=== PATIENT | male | born 1995 | race Caucasian/White ===

== ENCOUNTER 2019-08-07 13:48 | Emergency (ER) | payer BC ==
[2019-08-07] MEDS ORDERED: Lidocaine 1% 10 ML MDV INJECT ONE (14:10)
--- NOTE | 2019-08-07 14:17 | EDM.PDOC ---
ED HPI GENERAL MEDICAL PROBLEM - General Chief Complaint: Laceration Stated Complaint: L KNEE LAC Time Seen by Provider: 08/07/19 14:00 Source of Information: Reports: Patient, RN Notes Reviewed History Limitations: Reports: No Limitations - History of Present Illness INITIAL COMMENTS - FREE TEXT/NARRATIVE: Patient is a 24-year-old male who presents to the ED for the evaluation of a left knee laceration. 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 The patient is still able to move his knee, however states it is a little painful to bend it fully. He has all sensation to his toes and foot, and does wiggle his toes without problem. Patient states that he is up-to-date on his tetanus vaccination, thinks that he had a booster last year. Patient is not complaining of any other symptoms. Left Knee Pain Score (Numeric/FACES): 5 - Related Data Allergies Allergy/AdvReac Type Severity Reaction Status Date / Time No Known Allergies Allergy Verified 08/07/19 14:02 Home Meds: Home Meds . [No Known Home Meds] 08/07/19 [History] Past Medical History - Past Health History Medical/Surgical History: Denies Medical/Surgical History Social & Family History - Tobacco Use Smoking Status *Q: Never Smoker Second Hand Smoke Exposure: No - Caffeine Use Caffeine Use: Reports: Coffee - Recreational Drug Use Recreational Drug Use: No ED ROS GENERAL - Review of Systems Review Of Systems: Comprehensive ROS is negative, except as noted in HPI. ED EXAM, SKIN/RASH Exam: See Below Exam Limited By: No Limitations General Appearance: Alert, WD/WN, No Apparent Distress Respiratory/Chest: No Respiratory Distress, Lungs Clear, Normal Breath Sounds, No Accessory Muscle Use, Chest Non-Tender Cardiovascular: Normal Peripheral Pulses, Regular Rate, Rhythm, No Murmur Extremities: Normal Inspection (with exception of laceration to left medial knee ), Normal Range of Motion, Normal Capillary Refill Neurological: Alert, Oriented, Normal Cognition, No Motor/Sensory Deficits Psychiatric: Normal Affect, Normal Mood Skin: Warm, Dry, Normal Color, No Rash, Wound/Incision (2.5cm linear wound to Left anteriomedial knee.) ED SKIN PROCEDURES - Laceration/Wound Repair Left Anterior Medial Knee Appearance: Superficial, Subcutaneous, Linear, Clean Distal NVT: Neuro & Vascular Intact, No Tendon Injury Anesthetic Type: Local Local Anesthesia - Lidocaine (Xylocaine): 1% Plain Local Anesthetic Volume: Other (6) Skin Prep: Chlorhexidine (Hibiciens), Saline Exploration/Debridement/Repair: Wound Explored, In a Bloodless Field, Explored to Base, No Foreign Material Found Closed with: Sutures Lac/Wound length In cm: 2.5 Suture Size: 3-0 # of Sutures: 6 Suture Type: Prolene, Interrupted, Simple Sterile Dressing Applied: Nurse Tetanus Status Addressed: Yes Complications: No Course - Vital Signs Last Recorded V/S: Last Vital Signs Temp 97.9 F 08/07/19 13:59 Pulse 67 08/07/19 13:59 Resp 16 08/07/19 13:59 BP 107/69 08/07/19 13:59 Pulse Ox 97 08/07/19 13:59 - Orders/Labs/Meds Meds: Medications Discontinued Medications Generic Name Dose Route Start Last Admin Trade Name Cristino PRN Reason Stop Dose Admin Lidocaine HCl 10 ml 08/07/19 14:10 08/07/19 14:47 Xylocaine 1% INJECT 08/07/19 14:11 10 ml ONETIME ONE Administration Departure - Departure Time of Disposition: 14:20 Disposition: Home, Self-Care 01 Condition: Good Clinical Impression: Laceration of knee without complication Qualifiers: Encounter type: initial encounter Laterality: left Qualified Code(s): S81.012A - Laceration without foreign body, left knee, initial encounter - Discharge Information *PRESCRIPTION DRUG MONITORING PROGRAM REVIEWED*: No *COPY OF PRESCRIPTION DRUG MONITORING REPORT IN PATIENT [place]: No Instructions: Sutured Wound Care, [id number] Referrals: PCP,None [Primary Care Provider] - Forms: ED Department Discharge Additional Instructions: You have been evaluated in the ED for your laceration. Sutures will need to stay in for 10-14 days (08/16-08/20) You may return to the ED or any clinic for removal. Please keep this area clean and dry, you may cleanse with regular soap and water. No vigorous scrubbing. The area where the sutures needed to be placed, is a fairly flexible surface, recommend that you try not to do a lot of squatting type activities while the wound is healing. Watch out for signs of infection like increased redness, swelling, pain at the laceration site, or if you should develop any fevers or chills. Please return to ED if your symptoms change or worsen. Sepsis Event Note - Evaluation Sepsis Screening Result: No Definite Risk - Focused Exam Vital Signs: Vital Signs Temp Pulse Resp BP Pulse Ox 08/07/19 13:59 97.9 F 67 16 107/69 97 Date Exam was Performed: 08/07/19 Time Exam was Performed: 14:58
== END 2019-08-07 15:27 | disposition home or self-care (01) ==
LOC: JD.ED 13:48
DX: S81.012A Laceration without foreign body, left knee, initial encounter (principal); W27.8XXA Contact with other nonpowered hand tool, initial encounter
CPT/HCPCS: 12001; 99282; J2001

== ENCOUNTER 2020-10-14 20:05 | Emergency (ER) | payer BC ==
[2020-10-14] MEDS ORDERED: Sodium Chloride 0.9% 10 ML Syringe FLUSH PRN ×2 (20:49→23:10)
--- NOTE | 2020-10-14 21:27 | EDM.PDOC ---
<Robert Murphy M - Last Filed: 10/15/20 11:23> ED HPI GENERAL MEDICAL PROBLEM - General Chief Complaint: Respiratory Problem Stated Complaint: POST COVID COMPLICATIONS Time Seen by Provider: 10/14/20 20:17 Source of Information: Reports: Patient History Limitations: Reports: No Limitations - History of Present Illness INITIAL COMMENTS - FREE TEXT/NARRATIVE: Patient presents to the emergency department today with complaints of chest pain/discomfort that has been increasing since being diagnosed with Covid on September 28, 2020. Patient states that he was tested for Covid on September 28, 2020 at his work where he tested positive. He states he quarantined for 10 days. At that time his only real symptoms were some sinus congestion. He states he then attempted to go back to work and was still not feeling well so he did get a 10- day extension for time off. He states that he did attempt to go back once again and states he was just not able to tolerate work he states he was exhausted, short of breath, and had chest discomfort. He states that he has had persistent chest discomfort/pressure since and came to the ER today. He states he just wants to feel better so he can get back to work. He denies any previous medical history. He does not take any prescription medications. And he does not have a primary care provider. Lungs Pain Score (Numeric/FACES): 3 - Related Data Allergies Allergy/AdvReac Type Severity Reaction Status Date / Time No Known Allergies Allergy Verified 10/14/20 20:25 Home Meds: Home Meds . [No Known Home Meds] 08/07/19 [History] Past Medical History - Past Health History Medical/Surgical History: Denies Medical/Surgical History - Infectious Disease History Infectious Disease History: Reports: Novel Coronavirus Social & Family History - Tobacco Use Tobacco Use Status *Q: Light Tobacco User Years of Tobacco use: 3 Packs/Tins Daily: 0.2 - Caffeine Use Caffeine Use: Reports: Energy Drinks - Alcohol Use Days Per Week of Alcohol Use: 3 Number of Drinks Per Day: 5 Total Drinks Per Week: 15 - Recreational Drug Use Recreational Drug Use: No ED ROS GENERAL - Review of Systems Review Of Systems: Comprehensive ROS is negative, except as noted in HPI. ED EXAM, GENERAL - Physical Exam Exam: See Below Exam Limited By: No Limitations General Appearance: Alert, WD/WN, Mild Distress Ears: Normal External Exam, Hearing Grossly Normal Nose: Normal Inspection Throat/Mouth: Normal Inspection, Normal Lips, Normal Voice, No Airway Compromise Head: Atraumatic, Normocephalic Neck: Normal Inspection, Supple Respiratory/Chest: No Respiratory Distress, Lungs Clear, Normal Breath Sounds, No Accessory Muscle Use, Chest Non-Tender Cardiovascular: Normal Peripheral Pulses, Regular Rate, Rhythm, No Edema Peripheral Pulses: 2+: Radial (L), Radial (R) GI/Abdominal: Normal Bowel Sounds, Soft, Non-Tender, No Distention (Male) Exam: Deferred Rectal (Males) Exam: Deferred Back Exam: Normal Inspection, Full Range of Motion Extremities: Normal Inspection, Normal Range of Motion, Non-Tender, No Pedal Edema, Normal Capillary Refill Neurological: Alert, Oriented, Normal Cognition Psychiatric: Normal Affect, Normal Mood Skin Exam: Warm, Dry, Intact, Normal Color, No Rash Lymphatic: No Adenopathy #1 Interpretation EKG Date: 10/14/20 Time: 21:08 Rhythm: NSR Rate (Beats/Min): 81 [place]: Normal P-Wave: Present QRS: Normal ST-T: Elevated (V2, V3, V4, V5, II, III, AVF) QT: Normal Comparison: NA - No Prior EKG EKG Interpretation Comments: Per Dr. Lora interpretation: Sinus rhythm at a rate of 81; borderline left axis deviation; acute anterior infarct; ST elevation, consider inferior injury; lateral leads are also involved Course - Vital Signs Text/Narrative:: Patient presents with increasing chest pressure and shortness of breath after being diagnosed with Covid on September 282020. Patient has had increasing shortness of breath and activity intolerance. I have ordered labs to include a CBC, CMP, C-reactive protein, D-dimer, magnesium level, troponin and CK-MB. I have ordered an EKG and CTA of the chest to rule out DVT. - Re-Assessments/Exams Free Text/Narrative Re-Assessment/Exam: 10/14/20 22:58 Hematology reveals a WBC of 18.01, hemoglobin 16.1, hematocrit 45.6, platelet count 357, neutrophil percentage 73.6, coagulation reveals a D-dimer less than 0.19 Chemistry reveals a sodium of 134, potassium 4.5, chloride 94, anion gap 21.5, BUN 26, creatinine 2.1, BUN/creatinine ratio 12.4, glucose 107, calcium 11.3, magnesium 2.1, total bilirubin 1.2, AST 23, ALT 37, alk phos 109, CK-MB 1.8, troponin less than 0.017, C-reactive protein 0.4 I have ordered for the patient to receive 1 liter of normal saline bolus as his creatine is elevated. 10/14/20 23:21 I have handed off care to Dr. Lora. 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, Lab test positive for detection of COVID-19 virus, Pneumonia due to COVID-19 virus, Chest pain, atypical, Dyspnea on exertion, Abnormal finding on EKG - Discharge Information Referrals: PCP,None [Primary Care Provider] - Forms: ED Department Discharge Sepsis Event Note (ED) - Evaluation Sepsis Screening Result: No Definite Risk <Jennifer Lora - Last Filed: 10/16/20 05:11> Course - Vital Signs Last Recorded V/S: Last Vital Signs Temp 97.7 F 10/15/20 00:19 Pulse 84 10/15/20 00:19 Resp 18 10/15/20 00:19 BP 126/73 10/15/20 00:19 Pulse Ox 100 10/15/20 00:19 - Orders/Labs/Meds Labs: Laboratory Tests 10/14/20 10/14/20 10/14/20 Range/Units 21:40 21:40 21:40 WBC 18.01 H (4.23-9.07) K/mm3 RBC 5.47 (4.63-6.08) M/mm3 Hgb 16.1 (13.7-17.5) gm/dl Hct 45.6 (40.1-51.0) % MCV 83.4 (79.0-92.2) fl MCH 29.4 (25.7-32.2) pg MCHC 35.3 (32.2-35.5) g/dl RDW Std Deviation 39.2 (35.1-43.9) fL Plt Count 357 H (163-337) K/mm3 MPV 10.4 (9.4-12.3) fl Neut % (Auto) 73.6 H (34.0-67.9) % Lymph % (Auto) 13.9 L (21.8-53.1) % [place] % (Auto) 11.9 (5.3-12.2) % Eos % (Auto) 0.1 L (0.8-7.0) Baso % (Auto) 0.2 (0.1-1.2) % Neut # (Auto) 13.25 H (1.78-5.38) K/mm3 Lymph # (Auto) 2.50 (1.32-3.57) K/mm3 [place] # (Auto) 2.15 H (0.30-0.82) K/mm3 Eos # (Auto) 0.01 L (0.04-0.54) K/mm3 Baso # (Auto) 0.04 (0.01-0.08) K/mm3 Manual Slide Review Abnormal smear D-Dimer, Quantitative (0.19-0.50) mg/L Sodium 134 L (136-145) mEq/L Potassium 4.5 (3.5-5.1) mEq/L Chloride 94 L (98-107) mEq/L Carbon Dioxide 23 (21-32) mEq/L Anion Gap 21.5 H (5-15) BUN 26 H (7-18) mg/dL Creatinine 2.1 H (0.7-1.3) mg/dL Est Cr Clr Drug Dosing 58.51 mL/min Estimated GFR (MDRD) 38 (>60) mL/min BUN/Creatinine Ratio 12.4 L (14-18) Glucose 107 H (70-99) mg/dL Calcium 11.3 H (8.5-10.1) mg/dL Magnesium 2.1 (1.8-2.4) mg/dL Total Bilirubin 1.2 H (0.2-1.0) mg/dL AST 23 (15-37) U/L ALT 37 (16-63) U/L Alkaline Phosphatase 109 (46-116) U/L CK-MB (CK-2) 1.8 (0-3.6) ng/ml Troponin I < 0.017 (0.00-0.056) ng/mL C-Reactive Protein 0.4 (<1.0) mg/dL Total Protein 9.5 H (6.4-8.2) g/dl Albumin 5.0 (3.4-5.0) g/dl Globulin 4.5 gm/dL Albumin/Globulin Ratio 1.1 (1-2) 10/14/20 Range/Units 21:40 WBC (4.23-9.07) K/mm3 RBC (4.63-6.08) M/mm3 Hgb (13.7-17.5) gm/dl Hct (40.1-51.0) % MCV (79.0-92.2) fl MCH (25.7-32.2) pg MCHC (32.2-35.5) g/dl RDW Std Deviation (35.1-43.9) fL Plt Count (163-337) K/mm3 MPV (9.4-12.3) fl Neut % (Auto) (34.0-67.9) % Lymph % (Auto) (21.8-53.1) % [place] % (Auto) (5.3-12.2) % Eos % (Auto) (0.8-7.0) Baso % (Auto) (0.1-1.2) % Neut # (Auto) (1.78-5.38) K/mm3 Lymph # (Auto) (1.32-3.57) K/mm3 [place] # (Auto) (0.30-0.82) K/mm3 Eos # (Auto) (0.04-0.54) K/mm3 Baso # (Auto) (0.01-0.08) K/mm3 Manual Slide Review D-Dimer, Quantitative < 0.19 L (0.19-0.50) mg/L Sodium (136-145) mEq/L Potassium (3.5-5.1) mEq/L Chloride (98-107) mEq/L Carbon Dioxide (21-32) mEq/L Anion Gap (5-15) BUN (7-18) mg/dL Creatinine (0.7-1.3) mg/dL Est Cr Clr Drug Dosing mL/min Estimated GFR (MDRD) (>60) mL/min BUN/Creatinine Ratio (14-18) Glucose (70-99) mg/dL Calcium (8.5-10.1) mg/dL Magnesium (1.8-2.4) mg/dL Total Bilirubin (0.2-1.0) mg/dL AST (15-37) U/L ALT (16-63) U/L Alkaline Phosphatase (46-116) U/L CK-MB (CK-2) (0-3.6) ng/ml Troponin I (0.00-0.056) ng/mL C-Reactive Protein (<1.0) mg/dL Total Protein (6.4-8.2) g/dl Albumin (3.4-5.0) g/dl Globulin gm/dL Albumin/Globulin Ratio (1-2) Meds: Medications Discontinued Medications Generic Name Dose Route Start Last Admin Trade Name Freq PRN Reason Stop Dose Admin Aspirin 324 mg 10/15/20 00:44 10/15/20 00:59 Aspirin 81 Mg Tab.Chew PO 10/15/20 00:45 324 mg ONETIME ONE Administration Azithromycin 500 mg 10/15/20 01:00 10/15/20 01:01 Azithromycin 250 Mg Tab PO 500 mg DAILY CHANTALE Administration Heparin Sodium (Porcine) 5,000 units 10/15/20 00:44 10/15/20 01:02 Heparin Sodium 5,000 Units/Ml Vial IVPUSH 10/15/20 00:45 5,000 units ONETIME ONE Administration Sodium Chloride 1,000 mls @ 999 mls/hr 10/14/20 22:37 10/14/20 22:50 Normal Saline IV 10/14/20 23:37 999 mls/hr ONETIME ONE Administration Sodium Chloride 100 mls @ 60 drops/hr 10/14/20 23:15 10/14/20 23:14 Normal Saline IV 60 drops/hr ASDIRECTED CHANTALE Administration Sodium Chloride 1,000 mls @ 1,000 mls/hr 10/15/20 00:10 10/15/20 00:25 Normal Saline IV 10/15/20 01:09 1,000 mls/hr ONETIME ONE Administration Iopamidol 100 ml 10/14/20 23:09 10/14/20 23:14 Iopamidol 755 Mg/Ml 100 Ml Bottle IVPUSH 10/14/20 23:10 100 ml ONETIME ONE Administration Sodium Chloride 10 ml 10/14/20 20:49 10/14/20 21:45 Sodium Chloride 0.9% 10 Ml Syringe FLUSH 10 ml ASDIRECTED PRN Administration Keep Vein Open Sodium Chloride 10 ml 10/14/20 23:15 10/14/20 23:14 Sodium Chloride 0.9% 10 Ml Syringe FLUSH 10 ml BOLUS CHANTALE Administration Sodium Chloride 10 ml 10/14/20 23:10 Sodium Chloride 0.9% 10 Ml Syringe FLUSH ASDIRECTED PRN Keep Vein Open - Re-Assessments/Exams Free Text/Narrative Re-Assessment/Exam: 10/15/20 00:47 Patient's CTA of his chest returned positive for a small parenchymal infiltrate in left upper lung. Patient was then discussed with Dr. Rajan insurance case manager who felt that he could have myocarditis and wanted me to discuss the patient with the ER provider. Dr. Arredondo was able to look at patient's EKG and is agreed to take him in transfer and requested we give him an aspirin and to consider starting him on heparin. I am giving him heparin bolus at this point. I am also giving him some Zithromax 500 mg p.o. for his left upper lung infiltrate. Patient has received 2 L of IV fluid for his elevated creatinine. He is aware he is being transferred to [place] and most likely will need additional cardiac work-up. Departure - Departure Time of Disposition: 00:50 Condition: Good
[2020-10-14] MEDS ORDERED: Sodium Chloride 0.9% 1,000 ML IV ONE (22:37)
[2020-10-14] MEDS ORDERED: Iopamidol 755 Mg/ML 100 ML Bottle IVPUSH ONE (23:09)
[2020-10-14] MEDS ORDERED: Sodium Chloride 0.9% 10 ML Syringe FLUSH SCH (23:15)
[2020-10-14] MEDS ORDERED: Sodium Chloride 0.9% 100 ML IV SCH (23:15)
[2020-10-15] MEDS ORDERED: Sodium Chloride 0.9% 1,000 ML IV ONE (00:10)
[2020-10-15] MEDS ORDERED: Aspirin 81 MG Tab.Chew PO ONE (00:44)
[2020-10-15] MEDS ORDERED: Heparin Sodium 5,000 Units/ML Vial IVPUSH ONE (00:44)
[2020-10-15] MEDS ORDERED: Azithromycin 250 MG Tab PO SCH (01:00)
--- NOTE | 2020-10-15 13:04 | CT ---
CT chest Technique: Multiple axial sections were obtained from above the lung apices inferiorly through the lung bases. Intravenous contrast was utilized. Study has been performed as a pulmonary angiogram protocol. Comparison: No prior chest imaging is available. Findings: Pulmonary arteries are well opacified. No filling defects are seen to indicate pulmonary embolism. Thoracic aorta shows no aneurysm. Minimal thymic tissue is noted within the superior mediastinum. No pericardial thickening is seen. Small portion of the visualized upper abdominal structures show nothing acute. Minimal density is seen within the left lung base which is slightly nodular. Minimal density is seen within the left upper lung. Lungs otherwise are clear. No acute parenchymal change is otherwise seen. Bone window settings were reviewed which show no acute osseous finding. Impression: 1. No findings of pulmonary embolism. 2. Two minimal parenchymal densities within the left lung. These are nonspecific but please correlate if patient has had previous pneumonia for this to represent residual change. Diagnostic code #3 I agree with preliminary report from [facility], finalized on 10/15/20, 12:38 AM CDT, code 1
== END 2020-10-15 01:15 ==
LOC: JD.ED 20:05
DX: I51.4 Myocarditis, unspecified (principal); U07.1 COVID-19; J12.82 Pneumonia due to coronavirus disease 2019; R94.31 Abnormal electrocardiogram [ECG] [EKG]; Z72.0 Tobacco use
CPT/HCPCS: 36415; 71275; 80053; 82553; 83735; 84484; 85025; 85379; 86140; 93005; 96374; 99285; A9270; J1644; J7030; Q9967

== ENCOUNTER 2021-06-29 18:24 | Emergency (ER) | payer BC | END 2021-06-29 20:10 | disposition home or self-care (01) | LOC: JD.ED 18:24 | DX: R51.9 Headache, unspecified (principal); Z72.0 Tobacco use | CPT/HCPCS: 70450; 70450-26; 99284; 99284-25 ==